=== PATIENT | female | born 2005 | race Caucasian/White ===

== ENCOUNTER 2024-07-09 19:52 | Emergency (ER) | payer OTHER ==
[~2024-07-09] VITALS: Ht 167.6 cm; Wt 70.0 kg
[2024-07-09 19:58] VITALS: TEMP 98; O2SAT 98
[2024-07-09 21:33] LABS: BASOPHILS % 0.2 % (0.0-2.0); HEMATOCRIT. 43.1 % (36.0-48.0); HEMOGLOBIN. 14.1 g/dL (12.0-16.0); LYMPHOCYTES % 7.7 % (20.0-50.0); MEAN CORPUSCULAR HEMOGLOBIN 30.5 pg (28.0-32.0); MEAN CORPUSCULAR HGB CONC 32.8 g/dL (31.0-37.0); MEAN CORPUSCULAR VOLUME 92.9 fL (81.0-99.0); MEAN PLATELET VOLUME 8.8 fl (7.4-10.4); MONOCYTES % 2.9 % (2.0-8.0); NEUTROPHILS % 89.2 % (40.0-76.0); PLATELET 205 x1000/uL (130-400); RED BLOOD CELL COUNT 4.64 mill/uL (4.2-5.4); RED CELL DISTRIBUTION WIDTH 15.8 % (11.6-14.6)
[2024-07-09 21:37] LABS: CARBON DIOXIDE 27 mEq/L (21-32); CHLORIDE 108 mEq/L (98-107); POTASSIUM 4.2 mEq/L (3.5-5.1); SODIUM 142 mEq/L (136-145)
[2024-07-09 21:38] LABS: CALCIUM 10.1 mg/dL (8.7-10.4)
[2024-07-09 21:42] LABS: CREATININE 0.8 mg/dL (0.6-1.0)
[2024-07-09 21:43] LABS: GLUCOSE 126 mg/dL (70-105); UREA NITROGEN BLOOD 9 mg/dL (9-23)
[2024-07-09 21:44] LABS: ALANINE AMINOTRANSFERASE 19 IU/L (10-49); ASPARTATE AMINOTRANSFERASE 26 IU/L (<34)
[2024-07-09 21:45] LABS: ALBUMIN 4.8 g/dL (3.2-4.8); BILIRUBIN DIRECT 0.3 mg/dL (<=3.0); BILIRUBIN TOTAL 1.4 mg/dL (0.1-1.0); PROTEIN TOTAL 7.9 g/dL (6.0-8.3)
[2024-07-09] MEDS: IBUPROFEN 600MG TABLET PO ONE (23:00)
[2024-07-09] MEDS: ONDANSETRON 4MG ODT PO ONE (23:00)
[2024-07-09 23:22] LABS: HCG SCREEN NEGATIVE
[2024-07-10 00:58] LABS: CLARITY URINE CLOUDY (CLEAR); COLOR URINE DARK YELLOW (YELLOW); GLUCOSE URINE NEGATIVE (NEGATIVE); KETONES URINE 4+ (NEGATIVE); LEUKOCYTE ESTERASE URINE 1+ (NEGATIVE); NITRITE URINE NEGATIVE (NEGATIVE); OCCULT BLOOD URINE NEGATIVE (NEGATIVE); PH URINE 7.5 (4.5-8.0); PROTEIN URINE 1+ (NEGATIVE); SPECIFIC GRAVITY URINE 1.032 (1.005-1.030)
[2024-07-10] MEDS ORDERED: ONDA-239 PO (01:11)
[2024-07-10] MEDS: LORAZEPAM 1MG TABLET PO ONE (01:40)
[2024-07-10 01:43] VITALS: BP 118/71; PULSE 104; RESP 20; O2SAT 98
[2024-07-10 02:41] LABS: SQUAMOUS EPITHELIAL CELL URINE 3+ /lpf (RARE/1+)
[2024-07-10 02:43] LABS: BACTERIA URINE 1+; RBC URINE 0-2 /hpf (0-2)
== END 2024-07-10 01:44 | disposition home or self-care (01) ==
LOC: ER 19:52
DX: R11.2 Nausea with vomiting, unspecified (principal); E86.0 Dehydration; F10.20 Alcohol dependence, uncomplicated; Y90.9 Presence of alcohol in blood, level not specified
CPT/HCPCS: 99284; 80076; 80048; 81003; 84703; 83690; 85025; 36415; Q0162